=== PATIENT | female | born 1975 | race Caucasian/White ===

== ENCOUNTER 2016-10-27 08:39 | Day surgery (SDC) | payer OTHER ==
[~2016-10-27] VITALS: Ht 162.6 cm; Wt 77.1 kg
--- NOTE | 2016-10-27 06:54 | PCM.HPANE ---
Patient Data Surgeon Admitting Provider: Attending Provider:Gregg Fitzpatrick DPM Primary Care Physician:Seble Jules MD Other Provider:Susie [place] Anesthesia Reason for Visit Right Foot Hallux [place] Ht/WT & BMI Height (Feet): 5 Height (Inches): 4 Weight (Kilograms): 75.75 Body Mass Index 28.00 Allergies Coded Allergies: No Known Allergies (Verified Allergy, Unknown, 10/22/16) Past Anesthesia History Anesthesia History: Denies:: Anesthesia Reactions, Malignant Hyperthermia Diabetes History Hx Diabetes?: No MRSA MRSA: No Medications Reported Medications Multivitamin (Multi Vitamin Daily)1 Each Tablet1 Each PO DAILY 30 Days Ref 0 10/22/16 Cholecalciferol (Vitamin D3) (Vitamin D)1,000 Unit Capsule2,000 Unit PO DAILY # 1 BOTTLE Ref 0 10/22/16 Discontinued Scripts Ibuprofen 600 Mg [id number] Mg PO Q6H PRN For Pain #30 TABLET Prov:Shira Negro MD 05/02/15 Hydroxyzine Pamoate (HydrOXYzine Pamoate)25 Mg [id number] Mg PO Q6H PRN for itching or pain #10 CAPSULE Prov:Shira Negro MD 05/02/15 [Hydrocodone/Acetaminophen] ([place] 5-325)1 TABLET TABLET No Conflict Check1-2 Tablet PO Q4H PRN For Pain #40 TABLET Prov:Shira Negro MD 05/02/15 Docusate Sodium (Colace)100 Mg [id number] Mg PO TIDWM PRN For Constipation #14 CAPSULE Prov:Shira Negro MD 05/02/15 History History of ENT Problems?: No HEENT History: Denies:: Abnormal Airway Cataracts Difficult Intubation Dysphagia Glaucoma Hearing Problem Sinus Problem TMJ Denture Type: None Teeth Condition: Within Normal Limits Hx of Heart Problems?: No Cardiovascular History: Denies:: Heart Murmur Hypertension Hx of Respiratory Problem?: No Respiratory History: Denies:: Use of C-PAP Machine Hx Neurologic Problems?: No Hx of GI Problems?: Yes Hx of Problems?: No Female Hx: Denies:: Currently (S/P C/S) Skin History: Denies:: History Skin Disorders? Pressure Ulcers Hx Musculoskeletal Problems?: Yes Hx of Psycho/Social Problems?: No Hx Surgeries?: Yes (C/S,HEMORRHOIDECTOMY) Hx Any Other Health Problems?: Yes Other History: Denies:: Cancer Endocrine Disease Hospitalization Thyroid Disease History Blood Transfusions: Denies:: Blood Transfusions Hx Diabetes: No Hx Alcohol Use: YesAlcoholic Drinks Per Day: 2/DAY Smoking Status: Never Smoker Have You Smoked inLast 12 mo: No Stop/Bang S-Snoring: Do You Snore Loudly: No T-Tired: feel tired, fatigued: No O-Obsered: Observed not breath: No P-Blood Pressure: treated: No B- Body Mass Index > 35 kg/m2: No A- Age over 50: No N- Neck Large Circumference: No G- Gender Male: No LEONOR Total Score: 0 Risk Assessment Category Category 1A: Patient has history of documented sleep apnea, and HAS NOT received any narcotic, sedative or anesthesia administration during this stay. Category 1B: Patient has history of documented sleep apnea, and HAS received any narcotic , sedative or anesthesia administration during this stay Category 2: Patient has SUSPECTED Obstructive Sleep Apnea, and HAS received any narcotic , sedative or anesthesia administration during this stay. Category 3: Patient has SUSPECTED Obstructive Sleep Apnea and HAS NOT received narcotic, sedative or anesthesia administration during this stay. Category 4: Outpatient in Procedural Areas with known sleep apnea or who screen positive for High Risk via the STOP/BANG questionnaire. Exam Exam General Appearance: Alert, Oriented X3, Cooperative HEENT/AIRWAY: MP 2, Neck Movement (from), Mouth Opening (wnl) Lungs: Clear to Auscultation Heart: Exam Unremarkable Plan Impression Patient chart reviewed, patient interviewed and anesthestic plan with risks, benefits, and alternatives discussed, and informed consent obtained. ASA Physical Status: ASA2 Mod Systemic Disease Anesthetic Plan: GA Bene/Risks/Altern/Consents: Yes HP Complete Prior to Induction: Yes Darrin Davenport MD October 27, 2016 06:54
[~2016-10-27 08:39] MED LIST: CHOL100045 PO; MULT-1018 PO
[2016-10-27] MEDS ORDERED: Propofol 10,000 mCg/mL 20 mL Inj ONE (08:40)
[2016-10-27] MEDS ORDERED: fentaNYL-PF 50 mCg/mL 2 mL Inj ONE (08:40)
[2016-10-27] MEDS ORDERED: Ondansetron 2 mg/mL 2 mL Inj ONE (08:40)
[2016-10-27] MEDS ORDERED: CeFAZolin Inj 2 gm / 50mL D5W IV ONE (08:49)
[2016-10-27 09:08] VITALS: BP 131/63; PULSE 69; RESP 16; O2SAT 97
[2016-10-27] MEDS: Lactated Ringer's 1,000 ML IV SCH ×2 (09:23→10:13)
[2016-10-27] MEDS ORDERED: fentaNYL-PF 50 mCg/mL 2 mL Inj IVPUSH PRN (10:35)
[2016-10-27] MEDS ORDERED: Ondansetron 2 mg/mL 2 mL Inj IVPUSH PRN (10:35)
[2016-10-27] MEDS ORDERED: HYDROmorphone 1 mg/mL Inj IVPUSH PRN (10:35)
[2016-10-27] MEDS ORDERED: Atropine 0.4 mg/mL Inj IVPUSH PRN (10:35)
[2016-10-27] MEDS ORDERED: Lactated Ringer's 1,000 ML IV SCH (10:35)
[2016-10-27] MEDS ORDERED: Lactated Ringer's 500 ML IV PRN (10:35)
[2016-10-27] MEDS ORDERED: Labetalol 5 mg/mL 4 mL Inj IV PRN (10:35)
[2016-10-27] MEDS ORDERED: Phenylephrine 10,000 mCg/mL Inj IVPUSH PRN (10:35)
[2016-10-27] MEDS ORDERED: hydrALAZINE 20 mg/mL Inj IVPUSH PRN (10:35)
[2016-10-27] MEDS ORDERED: EPHEDrine Sulfate 50 mg/mL Inj IVPUSH PRN (10:35)
[2016-10-27] MEDS ORDERED: Dexamethasone 4 mg/mL Inj IVPUSH PRN (10:35)
[2016-10-27] MEDS ORDERED: Bupivacaine-MPF 0.5% 30 mL Inj INJ ONE (10:43)
[2016-10-27] MEDS ORDERED: Lidocaine 1%-Epi 1:100,000 20 mL Inj INJ ONE (10:43)
[2016-10-27 11:27] VITALS: BP 117/64; PULSE 67; RESP 16; O2SAT 100
[2016-10-27 11:30] VITALS: BP 107/67; PULSE 63; RESP 14; O2SAT 99
--- NOTE | 2016-10-27 11:30 | PCM.PODPO ---
Podiatry Operative Report Date of Service: October 27, 2016 Date of Service October 27, 2016 Pre Operative Diagnosis Hallux limitus right lower extremity Post Operative Diagnosis Same as preoperative diagnoses Procedure Cheilectomy right first metatarsal Surgeon Surgeon: Gregg Fitzpatrick DPM Assistants: None Indication for Procedure Painful hallux limitus right foot Findings Moderate articular surface where with loss of articular cartilage overlying the lateral one half of the joint space. Significant arthritic hypertrophy of the dorsum of the great toe base and first metatarsal head Details of Procedure Patient was identified in the preoperative holding area. All preoperative comorbidities and allergies were identified and thoroughly discussed. A preoperative block consisting of 10 mL half percent Marcaine plain and 2% lidocaine with epinephrine in a one-to-one mixture was given in a Arizmendi block type fashion around the base of the first metatarsal. A curvilinear incision up proximally 4 cm in length was made overlying the first metatarsal phalangeal joint in a dorsal medial position. Once that initially her skin all subcutaneous neurovascular structures were identified and retracted out of the surgical field. Blunt dissection was carried down with the Metzenbaum scissor to identify the extensor hallucis longus tendon which was retracted laterally. Blunt dissection was carried with the Metzenbaum scissor to identify the medial neurovascular bundle which was resected medially. The capsule was then exposed. A #15 blade was used to incise through capsule throughout the course of the incision which then was reflected both medially and laterally exposing the first metatarsal phalangeal joint the base of the right hallux and the head of the first metatarsal. A rongeur was utilized to resect all bony prominences on the dorsum of the base of the proximal phalanx of the right great toe as well as free-floating loose bodies on the dorsal aspect of the first metatarsal phalangeal joint. A sagittal saw was then utilized to resect the dorsal aspect of the first metatarsal head removing all dorsal diseased articular surface and dorsal osteophytic change. The medial eminence was also resected taking care to not damage the sagittal groove. A rongeur was utilized to remove any remaining bony prominence. The lateral aspect of the articular surface was noted to be significantly void of articular cartilage a K wire was then utilized to fenestrate down to healthy bleeding bone in an effort to generate fibrocartilage formation over the lateral aspect of the first metatarsal head. Intraoperative C-arm x-ray was then utilized to verify resection of all bony prominence of the first metatarsophalangeal joint. 60 of dorsiflexion was easily achieved at the first metatarsophalangeal joint when the first metatarsophalangeal joint was placed through range of motion. This wound was not grossly flushed with large amounts of normal saline. Deep closure was performed with number 3. 0 Vicryl subcutaneous closure was performed with number 3. 0 Vicryl and subcuticular closure was performed with 4. 0 Monocryl. Steri-Strips and Mastisol were then applied and a dressing was applied consisting of Adaptic sterile 4 x 4 gauze Kerlix and Coban. The patient will be placed into a postoperative walking shoe upon arrival in the postanesthesia care unit. Prior to placement of the dressing a additional 10 mL of half percent Marcaine plain was injected around the surgical site. No complications occurred during this procedure the patient was then awoken by anesthesia and transported out of the operating room. Grafts, Implants: None Complications There were no periprocedural complications identified. Condition Stable Anesthetic Administered: MAC Catheters: None Output, Estimated Blood Loss: 10 Blood Admin during surgery: No Surgical Cast or Splint: None Surgical Specimen Removed: No Specimen sent to Pathology: No Post Operative Plan Ice and elevate right foot Weightbearing as tolerated to the right heel with limited activity Keep dressing clean dry and intact Pain medication as needed for severe pain only Contact office with any questions or concerns regarding care Gregg Fitzpatrick DPM October 27, 2016 11:30
[2016-10-27] MEDS ORDERED: CeFAZolin Inj 2 GM in IV Premix 1 EACH IV ONE (11:45)
[2016-10-27 11:50] VITALS: BP 115/71; PULSE 64; RESP 16; O2SAT 100
--- NOTE | 2016-10-27 12:00 | PCM.ANEP1 ---
Post Anesthesia PACU Phase 1 Assessment Vital Signs Vital Signs Date Time Temp Pulse Resp B/P Pulse Ox O2 Delivery O2 Flow Rate FiO2 10/27/16 11:50 64 16 115/71 100 Room Air 10/27/16 11:30 63 14 107/67 99 Room Air 10/27/16 11:27 36.6 67 16 117/64 100 Room Air 10/27/16 09:08 36.1 69 16 131/63 97 Room Air Anesthetic Administered: MAC Level of Alertness: Awake, talking FIGUEROA's with Equal Strength: Yes Pain: No Nausea or Vomiting: No CV Function and Hydration: No Airway Device: Lungs: Clear to Auscultation PACU Phase 2 Assessment Complications: No Follow up Care: No Patient Instructions Provided: N/A Darrin Davenport MD October 27, 2016 12:00
== END 2016-10-27 23:59 | disposition home or self-care (01) ==
LOC: SAS 08:39
PROVIDERS: ATTEND Podiatrist Foot & Ankle Surgery
DX: M20.21 Hallux rigidus, right foot (principal); M20.5X1 Other deformities of toe(s) (acquired), right foot
CPT/HCPCS: 28289; J0690; J2250; J2405; J3010; J7120